=== PATIENT | female | born 1985 | race Caucasian/White ===

== ENCOUNTER 2017-01-31 09:12 | Emergency (ER) | payer OTHER ==
[2017-01-31 10:20] LABS: BILIRUBIN,URINE NEGATIVE (NEGATIVE); PH,URINE 6.5 PH (5.0-7.5)
[2017-01-31 10:25] LABS: UA CHARGE (STRIP ONLY) YES; UR CULTURE IF IND NOT INDICATED
[2017-01-31 10:26] LABS: HCG UR QUAL NEGATIVE
--- NOTE | 2017-01-31 10:34 | ED Physician Documentation ---
History of Present Illness - Stated complaint Stated Complaint: LRQ PX - Chief complaint Chief Complaint: Abd Pain - Additonal information Additional information: hx from pt 32 f denies preg not sexually active for > 6 m RLQ pain for aprox 24hr no fever NVD no vag bleeding or dc seen at [facility] and had rebound sent to ER for ev no urine, preg, pelvic labs etc done yet Review of Systems Constitutional: denies: Fever, Chills Cardiac: denies: Chest pain / pressure GI: reports: Abdominal Pain. denies: Nausea, Vomiting, Diarrhea : denies: Discharge, Vaginal bleeding, Now EGA (pt denies) Endocrine: denies: Easy bruising / bleeding Immunocompromised: denies: Immunocompromised PD PAST MEDICAL HISTORY - Past Medical History Past Medical History: No - Past Surgical History Past Surgical History: Yes Ortho: Other - Present Medications Home Medications: Ambulatory Orders Medication Instructions Recorded Confirmed Cetirizine [ZyrTEC] 10 mg PO DAILY 01/31/17 01/31/17 Fluticasone [Flonase] 1 spray [facility] DAILY 01/31/17 01/31/17 Montelukast [Singulair] 10 mg PO DAILY 01/31/17 01/31/17 - Allergies Allergies/Adverse Reactions: Allergies Allergy/AdvReac Type Severity Reaction Status Date / Time yellow dye Allergy Anaphylaxis Verified 01/31/17 09:37 - Social History Does the pt smoke?: No Smoking Status: Never smoker Does the pt drink ETOH?: No Does the pt have substance abuse?: No - Immunizations Immunizations are current?: Yes PD ED PE NORMAL - Vitals Vital signs reviewed: Yes - General General: Alert and oriented X 3 - HEENT HEENT: PERRL - Cardiac Cardiac: RRR - Respiratory Respiratory: No respiratory distress, Clear bilaterally - Abdomen Abdomen: Normal bowel sounds, Soft, Other (+ TTP very low RLQ, no guarding, + mrebound, + heel tap, +/- rovsing) - Derm Derm: Normal color - Neuro Neuro: Alert and oriented X 3 Results - Vitals Vitals: Vital Signs - 24 hr 01/31/17 01/31/17 09:34 14:42 Temperature 36.9 C 36.6 C Heart Rate 91 74 Respiratory 16 16 Rate Blood Pressure 107/72 117/70 O2 Saturation 98 100 Oxygen O2 Source Room air - Labs Labs: Laboratory Tests 01/31/17 01/31/17 01/31/17 09:40 09:40 10:24 WBC 7.2 RBC 4.33 Hgb 14.5 Hct 43.0 MCV 99.2 H MCH 33.5 H MCHC 33.8 RDW 12.2 Plt Count 239 MPV 8.6 Neut # 4.6 Lymph # 2.1 Ray # 0.4 Eos # 0.0 Baso # 0.0 Absolute Nucleated RBC 0.00 Nucleated RBC % 0.1 Sodium Potassium Chloride Carbon Dioxide Anion Gap BUN Creatinine Estimated GFR (MDRD) Glucose Calcium Total Bilirubin AST ALT Alkaline Phosphatase Total Protein Albumin Globulin Albumin/Globulin Ratio Lipase Urine Color YELLOW Urine Clarity CLEAR Urine pH 6.5 Ur Specific [place] 1.010 1.010 Urine Protein NEGATIVE Urine Glucose (UA) NEGATIVE Urine Ketones NEGATIVE Urine Occult Blood NEGATIVE Urine Nitrite NEGATIVE Urine Bilirubin NEGATIVE Urine Urobilinogen 0.2 (NORMAL) Ur Leukocyte Esterase NEGATIVE Ur Microscopic Review NOT INDICATED Urine Culture Comments NOT INDICATED Urine HCG, Qual NEGATIVE 01/31/17 10:24 WBC RBC Hgb Hct MCV MCH MCHC RDW Plt Count MPV Neut # Lymph # Ray # Eos # Baso # Absolute Nucleated RBC Nucleated RBC % Sodium 138 Potassium 3.6 Chloride 102 Carbon Dioxide 28 Anion Gap 8.0 BUN 13 Creatinine 0.7 Estimated GFR (MDRD) 98 Glucose 90 Calcium 9.7 Total Bilirubin 1.1 H AST 24 ALT 18 Alkaline Phosphatase 45 Total Protein 7.2 Albumin 4.6 Globulin 2.6 Albumin/Globulin Ratio 1.8 Lipase 28 Urine Color Urine Clarity Urine pH Ur Specific [place] Urine Protein Urine Glucose (UA) Urine Ketones Urine Occult Blood Urine Nitrite Urine Bilirubin Urine Urobilinogen Ur Leukocyte Esterase Ur Microscopic Review Urine Culture Comments Urine HCG, Qual - Rads (name of study) pelvic sono Radiology: See rad report (3.5 cm R ovarian cyst with nl flow, IUD, trace FF) abd sono Radiology: See rad report (appendix not seen) CT abd pelvis with PO and IV con Radiology: See rad report (normal appendix, 3.5 cm right ovarian cyst with tiny FF in cul de sac) Departure - Departure Disposition: 01 Home, Self Care Clinical Impression: Pelvic pain Condition: Good Instructions: ED Abdominal Pain Unkn Cause Follow-Up: [facility] [Provider Group] Comments: Your symptoms were very concerning for appendicitis Thankfully the CT scan shows your appendix is fine You do have a cyst on the right ovary which could have leaked some fluid and caused pain. The ovary otherwise looks fine. And the CT and ultrasound did not show any other problems such as a bowel blockage or perforation, kidney stones or gallstones, an aneurysm or tear of your aorta etc. And your blood and urine tests were fine too. So I am not certain what caused the pain - it could have been the ovarian cyst leaking fluid - but given the reassuring work up and a normal appendix seen in CT, I think it is safe for you to go home Recommend motrin and tylenol if needed for any pain Follow up with your PMD if not better next week Return if worse
--- NOTE | 2017-01-31 12:33 | Ultrasound Report ---
RIGHT LOWER QUADRANT ULTRASOUND: 01/31/2017 CLINICAL INDICATION: Pain. TECHNIQUE: Real-time scanning was performed with farm loan representative static images obtained. FINDINGS: Ultrasound of the right lower quadrant was performed. The appendix is not confidently iden tified. Small lymph nodes are noted. No free fluid is seen. No abnormal fluid collection is appreciat ed. IMPRESSION: NONVISUALIZATION OF THE APPENDIX. NO SECONDARY FINDINGS OF ACUTE APPENDICITIS. JOB #: [id number] EXT JOB #:[id number]
--- NOTE | 2017-01-31 12:37 | Ultrasound Report ---
PELVIC ULTRASOUND: 01/31/2017 CLINICAL INDICATION: Right lower quadrant pain. TECHNIQUE: Transabdominal scanning was performed. The patient declined transvaginal scanning. FINDINGS: The uterus is anteverted, measuring 8.9 x 5.0 x 3.5 cm. The endometrium measures 3 mm. An IUD is noted in the expected location, and trace fluid is present within the endometrial canal. No fo shaun myometrial lesion is seen. The right ovary measures 4.9 x 3.8 x 3.2 cm, and demonstrates a 3.5 cm cyst. Normal flow is seen. The left ovary measures 4.1 x 2.2 x 1.4 cm, and is unremarkable. Normal f low is seen. Trace free fluid is present in the cul-de-sac. IMPRESSION: A 3.5 CM RIGHT OVARIAN CYST. NO EVIDENCE OF OVARIAN TORSION. IUD IN THE ENDOMETRIAL LETICIA L. JOB #: [id number] EXT JOB #:[id number]
[2017-01-31 12:38] LABS: BASOPHILS % (AUTO) 0.6 %; EOSINOPHILS % (AUTO) 0.4 %; HGB - HEMOGLOBIN 14.5 g/dL (12.0-16.0); LYMPHOCYTES # (AUTO) 2.1 10^3/uL (1.5-3.5); LYMPHOCYTES % (AUTO) 29.6 %; MEAN CORPUSCULAR HEMOGLOBIN 33.5 pg (27.0-31.0); MEAN CORPUSCULAR HGB CONC 33.8 g/dL (32.0-36.0); MEAN CORPUSCULAR VOLUME 99.2 fL (81.0-99.0); MEAN PLATELET VOLUME 8.6 fL (7.9-10.8); MONOCYTES # (AUTO) 0.4 10^3/uL (0.0-1.0); MONOCYTES % (AUTO) 5.9 %; NEUTROPHILS # (AUTO) 4.6 10^3/uL (1.5-6.6); NEUTROPHILS % (AUTO) 63.5 %; NUCLEATED RED BLOOD CELLS AUTO 0.1 /100WBC; RED BLOOD COUNT 4.33 10^6/uL (4.20-5.40); RED CELL DISTRIBUTION WIDTH 12.2 % (12.0-15.0); UNCORRECTED WHITE BLOOD COUNT 7.2 x10^3/uL; WHITE BLOOD COUNT 7.2 x10^3/uL (4.8-10.8)
[2017-01-31 12:48] LABS: ALBUMIN/GLOBULIN RATIO 1.8 (1.0-2.2); BILIRUBIN,TOTAL 1.1 mg/dL (0.2-1.0); CALCIUM 9.7 mg/dL (8.5-10.3); CREATININE 0.7 mg/dL (0.4-1.0); POTASSIUM 3.6 mmol/L (3.5-5.0); TOTAL PROTEIN 7.2 g/dL (6.7-8.2)
[2017-01-31] MEDS ORDERED: IOPAMIDOL-300 50 ML VIAL ONE ×2 (13:00→13:12)
[2017-01-31] MEDS ORDERED: IOPAMIDOL-300 100 ML VIAL ONE (13:00)
[2017-01-31] MEDS ORDERED: LIDOCAINE-EPINEPH-TETRACAINE 3 ML SYRINGE TOP ONE (13:17)
[2017-01-31] MEDS ORDERED: IOPAMIDOL-300 50 ML VIAL PO ONE (14:21)
[2017-01-31] MEDS ORDERED: IOPAMIDOL-300 100 ML VIAL IVP ONE (14:21)
--- NOTE | 2017-01-31 14:40 | CT Preliminary Report ---
Exam: CT ABDOMEN/PELVIS W/ IMPRESSION: 1. Normal appendix. 2. 3.5 cm right ovarian cyst with a tiny amount of cul-de-sac fluid. 3. Mild degenerative disk disease T11-T12. [facility] SITE ID: [id number]
[2017-01-31 14:43] VITALS: BP 117/70
--- NOTE | 2017-01-31 14:47 | CT Report ---
EXAM: CT ABDOMEN AND PELVIS EXAM DATE: 01/31/2017 02:20 PM. CLINICAL HISTORY: Right lower quadrant pain. COMPARISONS: Pelvic and right lower quadrant ultrasound earlier today.. TECHNIQUE: Routine helical CT imaging was performed through the abdomen and pelvis. IV contrast: 100 mL Isovue 300. Enteric contrast: 50 mL oral Isovue 300. Reconstructions: Coronal and sagittal. In accordance with CT protocol optimization, one or more of the following dose reduction techniques w ere utilized for this exam: automated exposure control, adjustment of mA and/or KV based on patient s ize, or use of iterative reconstructive technique. FINDINGS: Lung Bases: Unremarkable. Liver: Normal. No masses. Gallbladder/Bile Ducts: Unremarkable. Spleen: Normal. Pancreas: Normal. Adrenal Glands: Normal. Kidneys: Normal. No masses or hydronephrosis. Peritoneal Cavity/Bowel: Normal. No free fluid, free air or adenopathy. No masses or acute inflammato ry process. The appendix is well visualized and normal. Pelvic Organs: IUD in place. 3.5 cm right ovarian cyst, also evident on the ultrasound. Tiny amount of cul-de-sac fluid. No stones in the small caliber urinary bladder. Normal caliber left ovary. Vasculature: No aneurysms or other significant abnormality. Bones: Mild degenerative changes T11-T12. Other: None. IMPRESSION: 1. Normal appendix. 2. 3.5 cm right ovarian cyst with a tiny amount of cul-de-sac fluid. 3. Mild degenerative disk disease T11-T12. [facility] Referring Provider Line: [phone] SITE ID: [id number]
== END 2017-01-31 15:31 | disposition home or self-care (01) ==
LOC: ED 09:12
DX: R10.2 Pelvic and perineal pain (principal); N83.201 Unspecified ovarian cyst, right side; Z97.5 Presence of (intrauterine) contraceptive device
CPT/HCPCS: 36415; 74177; 76705; 76830; 76856; 80053; 81003; 81025; 83690; 85025; 93975; 99283; 99284; Q9967; 81001; 87086